=== PATIENT | female | born 1965 | race African-American/Black ===

== ENCOUNTER 2024-06-18 21:13 | Emergency (ER) | payer OTHER, MEDICAID ==
[~2024-06-18] VITALS: Ht 157.5 cm; Wt 49.0 kg
[2024-06-18 21:27] VITALS: TEMP 37; O2SAT 100
[2024-06-18 21:34] VITALS: O2SAT 99
[2024-06-19 00:01] VITALS: BP 126/86; PULSE 104; RESP 18
[2024-06-19] MEDS: HYDROCODONE/ACETAMINOPHEN 10/325MG TABLET PO ONE (00:01)
[2024-06-19] MEDS ORDERED: ACET-2708 MT (00:40)
[2024-06-19] MEDS ORDERED: PRED2.5T4 MT (00:40)
[2024-06-19] MEDS ORDERED: METH2.5T MT (00:40)
== END 2024-06-19 00:53 | disposition home or self-care (01) ==
LOC: ER 21:38
DX: M06.9 Rheumatoid arthritis, unspecified (principal)
CPT/HCPCS: 99283